=== PATIENT | male | born 1990 | race African-American/Black ===

== ENCOUNTER 2024-05-12 12:15 | Day surgery (SDC) | payer OTHER, SELFPAY ==
--- NOTE | 2024-05-12 | PATH_ITS ---
[facility] Accession Number: [id number] No. of containers..04 Tissue . 01 Material submitted: . PART A: stomach - ANTRUM BIOPSY PART B: esophagus - DISTAL ESOPHAGUS PART C: esophagus - MID ESOPHAGUS PART D: stomach - GASTRIC BODY . 01 Diagnosis: Part A: ANTRUM BIOPSY : Helicobacter pylori gastritis. No intestinal metaplasia, dysplasia, or malignancy identified. . Part B: DISTAL ESOPHAGUS: Squamous mucosa with no diagnostic alterations. Eosinophils are not increased. . Part C: MID ESOPHAGUS: Squamous mucosa with no diagnostic alterations. Eosinophils are not increased. . Part D: GASTRIC BODY: Helicobacter pylori gastritis. No intestinal metaplasia, dysplasia, or malignancy identified. [facility] 05/15/2024 1755 Local . 01 Comment: Parts A, D: An immunohistochemical stain was performed, revealing the presence of Helicobacter organisms. The control stains appropriately. * This test was developed and the performance characteristics were validated by [facility]. It has not been cleared or approved by the Food and Drug Administration. . 01 Electronically signed: . Justin Barahona MD, Pathologist NPI- [id number] . 01 Gross description: . A. Received in formalin with two patient identifiers and 1. Antrum biopsy, and consists of two freitas-brown irregular soft tissues measuring 0.1 and 0.2 cm in greatest dimension, which are entirely submitted into cassette A1. . B. Received in formalin with two patient identifiers and 2. Distal esophagus, and consists of a 0.1 cm white semitranslucent soft tissue which is entirely submitted into cassette B1. . C. Received in formalin with two patient identifiers and 3. Mid esophagus, and consists of four minute white semitranslucent soft tissues averaging 0.1 cm in greatest dimension, which are entirely submitted into cassette C1. . D. Received in formalin with two patient identifiers and 4. Gastric body, and consists of two freitas-brown irregular soft tissues averaging 0.2 cm in greatest dimension, which are entirely submitted into cassette D1. ([id number]) /MRV 05/15/2024 1755 Local . 01 Pathologist provided ICD-10: B96.81 . 01 CPT . 318149, [id number], 881343, 055004, C66311 Specimen Comment: A courtesy copy of this report has been sent to [phone] Performed at: [address] [id number] MD Justin Barahona MD Phone: [phone]
[2024-05-12 12:31] VITALS: BP 150/80; PULSE 60; RESP 18; TEMP 36.1; O2SAT 100
--- NOTE | 2024-05-12 12:57 | PM.HP.1 ---
History of Present Illness History of Present Illness Date Patient Seen: 05/12/24 Time Patient Seen: 12:57 Chief complaint: EGD Narrative: 34-year-old male who has been experiencing intermittent symptoms of globus and dysphagia. He does describe some improvement with proton pump inhibitor therapy. I reviewed the recent clinic note by Thompson Pruitt. No significant changes. [facility] Social History Smoking Status: Former smoker alcohol intake: current Meds Home Medications and Allergies Home Medications Medication Instructions Recorded Confirmed Type pantoprazole 20 mg tablet,delayed 20 mg PO DAILY 05/12/24 05/12/24 History release Review of Systems Review of Systems ROS: Yes All systems reviewed with the patient and are negative except as otherwise documented Exam Vital Signs (past 8 hours): - 05/12/24 12:31 Temperature 96.9 F L Pulse Rate 60 Respiratory Rate 18 Blood Pressure 150/80 H Pulse Oximetry 100 Oxygen Delivery Method Room Air Oxygen Delivery Method Room Air Const General: cooperative HENMT Head: normal to inspection Eyes General: appearance normal, both eyes and all related structures Neck Neck: normal visual inspection Chest Chest: normal inspection of the chest Resp Effort & Inspection: normal respiratory effort Cardio Rate: regular rate GI Inspection: normal to inspection Skin General: no rashes or lesions noted Neuro General: patient alert and patient awake Extrem General: normal to inspection and no pedal edema Psych Appearance: grossly normal Assessment & Plan Assessment & Plan narrative: 34-year-old male with globus and intermittent dysphagia. EGD for possible dilatation versus biopsies is pursued today. Time-Based Coding :: [TOTAL MINUTES] spent with patient and on the chart (including review of chart, obtaining history, exam, reviewing outside data, placing orders, documenting exam and treatment plan, and counseling patient) on [DATE].
--- NOTE | 2024-05-12 12:58 | PM.PREOP ---
Pre-operative Note Interval Note History & Physical reviewed/Exam performed by Physician: Yes Changes to H&P: No ASA Class (for procedural sedation): I
--- NOTE | 2024-05-12 13:38 | P.OP.EGD_ITS ---
Operative Date/Time/Diagnoses Date of procedure: 05/12/24 Time of procedure: 13:38 Pre-op diagnosis: Globus, dysphagia Post-op diagnosis: same Procedure & Clinicians Study performed: EGD with biopsies Same procedure as scheduled: Yes Indications: Globus, dysphagia Surgeon: Cecil Palmer Procedure Notes SCOAP/Timeout: Done Procedure in detail: After the risks and benefits were explained, written and verbal informed consent was obtained. The patient was brought into the procedure room and placed into the left lateral decubitus position. Please see anesthesia notes for sedation details. The scope was introduced into the mouth through the bite block and advanced under direct visualization to the 2nd portion of the duodenum. The scope was slowly withdrawn carefully examining the mucosa for any defects or lesions. Retroflexed views were accomplished in the stomach. The stomach was decompressed, the scope was then removed from the patient who tolerated the procedure well. Sedation minutes: 12 Complications: none Impression: 1. Duodenal: This was normal from the bulb through to the 2nd portion. 2. Stomach: No outlet obstruction. No ulcers. No mass lesions. Retroflexed views of the LES were unremarkable. The patient had a fairly J-shaped stomach. There was a rather diffuse mucosal erythema throughout the antrum and body. Biopsies were taken from the antrum for exclusion of H pylori. A separate set of biopsies was taken from the body for histopathologic analysis. 3. Esophagus: The squamocolumnar junction correlated with the top of the gastric folds. GE junction was at 40 cm from the incisors. The patient had a very sharp well demarcated squamocolumnar junction. No evidence of any esoph agitis. No stricturing. No mass lesions throughout the esophagus. Subjectively, there was perhaps slightly increased tension through the lower esophageal sphincter mechanism. Biopsies were taken from the distal and midesophagus for exclusion of eosinophilic esophagitis. Endoscopic diagnosis 1. Gastropathy 2. Subjectively tense lower esophageal sphincter mechanism 3. Otherwise visually normal EGD Post-procedure Plan for aftercare: 1. Await histology. 2. If Helicobacter is found, it will need to be eradicated with standard triple therapy. 3. If there are no findings to account for the reported symptoms, it would be perhaps prudent to consider esophageal pH and manometry testing. 4. Follow up GI clinic with Thompson Pruitt. Disposition: PACU
[2024-05-12 13:41] VITALS: BP 120/80; PULSE 65; RESP 10; TEMP 36.1; O2SAT 100
[2024-05-12 13:46] VITALS: BP 121/65; PULSE 65; RESP 14; O2SAT 100
[2024-05-12 13:51] VITALS: BP 125/68; PULSE 56; RESP 12; O2SAT 99
[2024-05-12 13:57] VITALS: BP 127/84; PULSE 57; RESP 12; TEMP 36.1; O2SAT 100
== END 2024-05-12 14:09 | disposition home or self-care (01) ==
PROVIDERS: Referring Provider Student in an Organized Health Care Education/Training Program; Visit Provider Internal Medicine Gastroenterology
PROC: 0DJ08ZZ Inspection of Upper Intestinal Tract, Via Natural or Artificial Opening Endoscopic (ICD-10-PCS; CPT 43235; principal; 2024-05-12 13:00)
DX: R13.10 Dysphagia, unspecified (principal); Z87.891 Personal history of nicotine dependence; K31.9 Disease of stomach and duodenum, unspecified; K29.60 Other gastritis without bleeding; B96.81 Helicobacter pylori [H. pylori] as the cause of diseases classified elsewhere
CPT/HCPCS: 43239; J2704